=== PATIENT | male | born 2000 | race Caucasian/White ===

== ENCOUNTER 2021-11-02 21:26 | Emergency (ER) | payer BC ==
[2021-11-02 21:51] VITALS: O2SAT 100
--- NOTE | 2021-11-02 21:56 | ERPHSYRPT ---
- History of Present Illness Source: patient Exam Limitations: no limitations Patient Subjective Stated Complaint: Patient is here for medical clearance to return to work. Patient states he fell on a metal can of baby formula on . He indicates that the pain to his right lower rib area was "pretty sore on and Tuesday" but that he has been taking advil for the pain and it is effective in managing the pain. Denies SOB. States that he has been "working out" again over the weekend without any difficulties. States he is here to prove that he is "fit for duty" so that he can return to work. Indicates his job requires it. Triage Nursing Assessment: Patient ambulated back to ED without difficulties. He is alert and oriented and answering questions appropriately. No SOB noted. Right rib area examined with no bruising or breaks in skin noted; skin tone normal. Patient able to MANUEL WNL without any difficulties noted and with no s/s of pain noted. Physician History: 20 yo wm fell onto metal can on floor 10/29/21 injuring his R lateral thorax. Pt states that he has recovered and needs ok to return to work. He actually worked out over the weekend wo difficulty. Pt denies LOC/headache-head injury/C,T, or L-spine pain/UE pain/Hip pain/LE pain/dyspnea/fever. Occurred: other (10/29/21) Reason for Fall: slipped Injuries/Pain Location: chest Loss of Consciousness: no loss of consciousness Severity of Pain-Max: moderate Severity of Pain-Current: none Modifying Factors: Improves With: nothing Associated Symptoms (Fall): No abdominal pain, No back pain, No confusion, No chest pain, No dizziness, No extremity injury, No headache, No lightheadedness, No muscle spasms, No nausea, No neck pain, No ringing in ears, No seizures, No shortness of breath, No slurred speech, No trouble walking, No vomiting Allergies/Adverse Reactions: No Known Drug Allergies Allergy (Unverified 11/02/21 21:41) Home Medications: No Reportable Medications [No Reported Medications] 11/02/21 [History] Hx Tetanus, Diphtheria Vaccination/Date Given: Yes Hx Influenza Vaccination/Date Given: No Hx Pneumococcal Vaccination/Date Given: No Immunizations Up to Date: Yes Travel Risk - International Travel Have you traveled outside of the country in past 3 weeks: No - Coronavirus Screening Are you exhibiting any of the following symptoms?: No Close contact with a COVID-19 positive Pt in past 14-21 Days: No - Vaccine Status Have you recieved a Covid-19 vaccination: Yes Camp Nurse: Moderna - Vaccination Dates Date of 2cond Vaccination (if applicable): 2020 - Review of Systems Constitutional: No Symptoms Eyes: No Symptoms Ears, Nose, & Throat: No Symptoms Respiratory: No Symptoms Cardiac: No Symptoms Abdominal/Gastrointestinal: No Symptoms Genitourinary Symptoms: No Symptoms Musculoskeletal: No Symptoms Skin: No Symptoms Neurological: No Symptoms Psychological: No Symptoms Endocrine: No Symptoms Hematologic/Lymphatic: No Symptoms Immunological/Allergic: No Symptoms - Past Medical History Pertinent Past Medical History: Yes Neurological History: No Pertinent History ENT History: No Pertinent History Cardiac History: No Pertinent History Respiratory History: No Pertinent History Endocrine Medical History: No Pertinent History Musculoskeletal History: No Pertinent History GI Medical History: No Pertinent History History: No Pertinent History Psycho-Social History: No Pertinent History Male Reproductive Disorders: No Pertinent History Other Medical History: Anemia - Past Surgical History Past Surgical History: Yes Neuro Surgical History: No Pertinent History Cardiac: No Pertinent History Respiratory: No Pertinent History Gastrointestinal: No Pertinent History Genitourinary: No Pertinent History Musculoskeletal: No Pertinent History Male Surgical History: No Pertinent History - Social History Smoking Status: Never smoker Exposure to second hand smoke: No Drug Use: none Patient Lives Alone: Yes Significant Family History: no pertinent family hx - Nursing Vital Signs Nursing Vital Signs: Initial Vital Signs Temperature 99.1 F 11/02/21 21:42 Pulse Rate 93 H 11/02/21 21:42 Respiratory Rate 18 11/02/21 21:42 Blood Pressure 112/86 11/02/21 21:42 O2 Sat by Pulse Oximetry 100 11/02/21 21:42 Pain Scale Pain Intensity 0 WNL - April Coma Score Best Eye Response ([place]): (4) open spontaneously Best Verbal Response ([place]): (5) oriented Best Motor Response ([place]): (6) obeys commands [place] Total: 15 - Physical Exam General Appearance: no apparent distress Head Injury: no evidence of injury Eye Exam: PERRL/EOMI, eyes nml inspection ENT Exam: airway nml, evidence of ENT injury, No clear fluid (ears), No clear fluid (nose) Neck Exam: supple, trachea midline, full range of motion (C-spine WNL) Respiratory/Chest Exam: chest tenderness (Very mild R lateral thoracic TTP), normal breath sounds, No respiratory distress Cardiovascular Exam: normal heart sounds, regular rate/rhythm, normal peripheral pulses, No murmur Gastrointestinal Exam: soft, normal bowel sounds, No tenderness Back Exam: normal inspection, normal range of motion Extremity Exam: normal inspection, normal range of motion, capillary refill <3 sec, pelvis stable, No evidence of injury, No hip tenderness, No motor deficit, No sensory deficit Peripheral Pulses: carotid (R): 2+, carotid (L): 2+ Neurologic Exam: alert, oriented x 3, cooperative, 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 He does not believe that he needs a CXR and states that he can do his job wo difficulty. Counseled pt/family regarding: diagnosis, need for follow-up - Departure Departure Disposition: Home Clinical Impression: Chest wall contusion Condition: Stable Critical Care Time: No Instructions: Blunt Chest Trauma (DC) Additional Instructions: Motrin/Tylenol for pain Return to ER as needed Forms: Work/School Release Form
[2021-11-02 22:10] VITALS: BP 110/80; PULSE 90
== END 2021-11-02 22:15 | disposition home or self-care (01) ==
LOC: ED 21:26
DX: S20.211A Contusion of right front wall of thorax, initial encounter (principal); W01.0XXA Fall on same level from slipping, tripping and stumbling without subsequent striking against object, initial encounter
CPT/HCPCS: 99283